=== PATIENT | male | born 1985 | race Caucasian/White ===

== ENCOUNTER 2020-12-10 19:54 | Emergency (ER) | payer MEDICAID ==
[~2020-12-10] VITALS: Ht 185.4 cm; Wt 65.7 kg
[2020-12-10 20:15] VITALS: BP 112/89
== END 2020-12-10 21:54 | disposition left against medical advice (07) ==
LOC: ER 19:56
DX: R10.84 Generalized abdominal pain (principal); Z53.21 Procedure and treatment not carried out due to patient leaving prior to being seen by health care provider